=== PATIENT | male | born 1995 | race Caucasian/White ===

== ENCOUNTER → 2024-01-02 | Outpatient (CLI) | payer OTHER, SELFPAY ==
--- NOTE | 2024-01-02 15:45 | RAD_ITS ---
EXAM: XR RIGHT ANKLE COMPLETE, 3 OR MORE VIEWS CLINICAL INDICATION: Right ankle pain TECHNIQUE: Frontal, lateral and oblique views of the right ankle. COMPARISON: No relevant prior studies available. FINDINGS: BONES/JOINTS: Small calcification or ossicle at the inferior aspect of the medial malleolus probably represents sequela of remote trauma. No acute fracture. No subluxation. Normal alignment. Preservation of the joint space. No sclerotic or destructive changes observed. SOFT TISSUES: Moderate soft tissue swelling overlying the lateral malleolus. No radiopaque foreign body. RAD/Ankle min 3 Views IMPRESSION: 1. No acute or healing fracture or malalignment. 2. Moderate soft tissue swelling left overlying the lateral lobes of the malleolus. 3. Old injury along the inferior aspect of the medial malleolus. Electronically Signed: Lázaro Handley MD at 17:08 EDT ,
== END | disposition home or self-care (01) ==
LOC: MTRAD 15:43
PROVIDERS: Referring Provider Physician Assistant Surgical; Visit Provider Physician Assistant Surgical
DX: S93.401A Sprain of unspecified ligament of right ankle, initial encounter (principal); X58.XXXA Exposure to other specified factors, initial encounter
CPT/HCPCS: 73610